=== PATIENT | male | born 1970 | race Caucasian/White ===

== ENCOUNTER 2017-02-23 12:58 | Emergency (ER) | payer OTHER ==
[~2017-02-23] VITALS: Ht 190.5 cm; Wt 127.0 kg
[2017-02-23 13:25] VITALS: BP 138/87
[2017-02-23] MEDS ORDERED: ACETAMINOPHEN 325 MG TABLET. PO ONE (14:00)
--- NOTE | 2017-02-23 14:19 | RAD ---
CT of the head without contrast, 02/23/2017: History: Head trauma The ventricles are within normal limits in size. There is no shift of the midline structures. Bilateral basal ganglia calcifications are present. There is no evidence of acute intracranial hemorrhage or mass effect. There is mild mucosal thickening in both ethmoid sinuses. IMPRESSION: No acute intracranial abnormality is detected. PQRS Compliance Statement: One or more of the following individualized dose reduction techniques were utilized for this examination: 1. Automated exposure control 2. Adjustment of the mA and/or kV according to patient size 3. Use of iterative reconstruction technique
[2017-02-23] MEDS ORDERED: ONDA4TAB10 SL (14:27)
--- NOTE | 2017-02-23 14:27 | PHYS DOC ---
Past Medical History Past Medical History: No Pertinent History Past Surgical History: Appendectomy, Other Additional Past Surgical Histo: BACK SX Alcohol Use: Occasionally Drug Use: None Adult General Chief Complaint Chief Complaint: HEAD INJURY/TRAUMA HPI HPI Patient is a 46 year old [facility] emergency department stating that he was trying to give her a door at work when the person on the other side swung the large metal door opened and hit him in the head. Patient denies any loss of consciousness did state he has some photophobia and nausea vomiting. Patient denies any symptoms at this time. Patient states he does have a headache. He denies cervical spine tenderness however does have paraspinal tenderness. Patient is able to ambulate and move all extremities without difficulty. Review of Systems Review of Systems Constitutional: Denies fever or chills [] Eyes: Denies change in visual acuity, redness, or eye pain [] HENT: Denies nasal congestion or sore throat [] Respiratory: Denies cough or shortness of breath [] Cardiovascular: No additional information not addressed in HPI [] GI: Denies abdominal pain, bloody stools or diarrhea. C/o nausea and vomiting : Denies dysuria or hematuria [] Musculoskeletal: Denies back pain or joint pain [] Integument: Denies rash or skin lesions. Abrasion left side of head Neurologic: headache, denies focal weakness or sensory changes [] Endocrine: Denies polyuria or polydipsia [] All other systems were reviewed and found to be within normal limits, except as documented in this note. Current Medications Current Medications Current Medications Medications (Trade) Dose Ordered Sig/[facility] Start Time Stop Time Status Last Admin Dose Admin Acetaminophen (Tylenol) 650 mg 1X ONCE 02/23/17 14:00 02/23/17 14:01 [place] Allergies Allergies Allergies Coded Allergies Type Severity Reaction Last Updated Verified No Known Drug Allergies 02/23/17 No Physical Exam Physical Exam Constitutional: Well developed, well nourished, no acute distress, non-toxic appearance. [] HENT: Normocephalic, atraumatic, bilateral external ears normal, oropharynx moist, no oral exudates, nose normal. Tympanic membranes appear to be normal. Throat with no erythematous. No exudate. Eyes: PERRLA, EOMI, conjunctiva normal, no discharge. [] Neck: Normal range of motion, no tenderness, supple, no stridor. [] Cardiovascular:Heart rate regular rhythm, no murmur [] Lungs & Thorax: Bilateral breath sounds clear to auscultation [] Skin: Warm, dry, no erythema, no rash. With abrasion noted to the left side of the head just slightly above the ear. Major discharge noted from the site no areas that appear to be suturable. Back: No tenderness, no CVA tenderness. [] Extremities: No tenderness, no cyanosis, no clubbing, ROM intact, no edema. [] Neurologic: Alert and oriented X 3, normal motor function, normal sensory function, no focal deficits noted. [] Psychologic: Affect normal, judgement normal, mood normal. [] Current Patient Data Vital Signs Vital Signs Date Time Temp Pulse Resp B/P (MAP) Pulse Ox O2 Delivery O2 Flow Rate FiO2 02/23/17 13:25 98.3 80 16 95 Room Air 98.3 EKG EKG [] Radiology/Procedures Radiology/Procedures [facility] [address] [place] [address] IMAGING REPORT Signed PATIENT: MICHAEL EDGAR ACCOUNT: [id number] : 1970 LOCATION: ER AGE: 46 SEX: M EXAM STATUS: REG ER ORD. PHYSICIAN: DEION HYLTON APRN REASON: metal door fell on head PROCEDURE: CT HEAD WO CONTRAST CT of the head without contrast, 02/23/2017: History: Head trauma The ventricles are within normal limits in size. There is no shift of the midline structures. Bilateral basal ganglia calcifications are present. There is no evidence of acute intracranial hemorrhage or mass effect. There is mild mucosal thickening in both ethmoid sinuses. IMPRESSION: No acute intracranial abnormality is detected. PQRS Compliance Statement: One or more of the following individualized dose reduction techniques were utilized for this examination: 1. Automated exposure control 2. Adjustment of the mA and/or kV according to patient size 3. Use of iterative reconstruction technique DICTATED and SIGNED BY: JENNA AGARWAL MD DATE: 02/23/17 1412 CC: DEION HYLTON APRN; NO PCP; NON,STAFF ~ [] Course & Med Decision Making Course & Med Decision Making Pertinent Labs and Imaging studies reviewed. (See chart for details) CT scan of the head was within normal limits per radiologist. Patient will be updated with a tetanus immunization. Recommended Tylenol for pain and discomfort. He'll be provided with Zofran for nausea. He was provided with signs and symptoms of concussion. Recommended somebody wake him every 2 hours to make sure he is alert and oriented. Recommended he follow up with his primary care physician in the next 3-5 days. Ice packs on 20 mi 20 minutes off 20 minutes several times several times today. Recommended cleaning the abrasion with soap and water and applying antibiotic twice a day. She was provided with signs and symptoms of infection: Redness, warmth, tenderness or yellowish/greenish dainage or discharge follow-up to primary care physician immediately. I've spoken with the patient and/or caregivers. I've explained the patient's condition, diagnosis and treatment plan based on information available to me at this time. I've answered the patient's and/or caregivers questions and addressed any concerns. The patient and/or caregivers have a good understanding the patient's diagnosis, condition and treatment plan as can be expected at this point. Vital signs have been stabilized. The patient's condition is stable for discharge from the emergency department. The patient will pursue further outpatient evaluation with her primary care provider or other designated consulting physician as outlined in the discharge instructions. Patient and/or caregivers are agreeable to this plan of care and follow-up instructions have been explained in detail. The patient and/or caregivers have received these instructions in written format and expressed understanding of these discharge instructions. The patient and her caregivers are aware that if any significant change in condition or worsening of symptoms should prompt him to immediately return to this of the closest emergency department. If an emergent department is not readily available I would encourage him to call 911. [] Dragon Disclaimer Dragon Disclaimer This electronic medical record was generated, in whole or in part, using a voice recognition dictation system. Departure Departure Impression: Primary Impression: Closed head injury Additional Impressions: Abrasion Brain concussion Disposition: 01 HOME, SELF-CARE Condition: STABLE Referrals: NO PCP (PCP) Patient Instructions: Abrasion, [id number], Concussion and Brain Injury, Easy -to-Read, Head Injury, Adult, [id number] Additional Instructions: Activity as tolerated. Have somebody wake him every 2 hours throughout the night making sure you're alert and oriented. Tylenol for pain and discomfort. Ice packs on 20 minutes off 20 minutes several times a day. Follow-up through primary care physician in next 3-5 days. Return back to emergency #symptoms become worse. [employer] Ondansetron (ZOFRAN ODT) 4 Mg Tab.rapdis 1 TAB SL Q8HRS, #10 TAB Prov: DEION HYLTON APRN 02/23/17 Problem Qualifiers Primary Impression: Closed head injury Encounter type: initial encounter Qualified Codes: S09.90XA - Unspecified injury of head, initial encounter Additional Impressions: Brain concussion Encounter type: initial encounter Loss of consciousness presence/duration: without LOC Qualified Codes: S06.0X0A - Concussion without loss of consciousness, initial encounter DEION HYLTON [employer] Feb 23, 2017 14:27
[2017-02-23] MEDS ORDERED: DIPHTH,PERTUSS(ACELL),TET TOX 0.5 ML DISP.SYRIN. VAX IM ONE (14:30)
== END 2017-02-23 14:59 | disposition home or self-care (01) ==
LOC: ER 12:58
DX: S06.0X0A Concussion without loss of consciousness, initial encounter (principal); W22.8XXA Striking against or struck by other objects, initial encounter; Y93.89 Activity, other specified; Y99.8 Other external cause status; Y92.89 Other specified places as the place of occurrence of the external cause
CPT/HCPCS: 70450; 90471; 90715; 99284-25